=== PATIENT | female | born 1995 | race Caucasian/White ===

== ENCOUNTER 2024-10-24 16:23 | Emergency (ER) | payer MEDICARE ==
[~2024-10-24] VITALS: Ht 162.6 cm; Wt 63.5 kg
[2024-10-24 19:11] VITALS: TEMP 98.3
[2024-10-24] MEDS ORDERED: METOCLOPRAMIDE HCL 10 MG/2ML VIAL IV ONE (19:30)
[2024-10-24] MEDS ORDERED: KETOROLAC TROMETHAMINE 30 MG/ML VIAL ONE (19:44)
[2024-10-24 19:49] LABS: BASOPHILS % 0.4 % (0.0-1.0); EOSINOPHILS % 0.4 % (0.0-6.0); LYMPHOCYTES % 7.4 % (18.0-39.1); MONOCYTES % 4.8 % (4.4-11.3); NEUTROPHILS % 86.8 % (38.7-80.0); RED CELL DISTRIBUTION WIDTH 12.0 % (11.7-14.4)
[2024-10-24 19:52] LABS: AMPHETAMINES SCREEN,URINE NEGATIVE (NEGATIVE); CANNABINOIDS SCREEN,URINE NEGATIVE (NEGATIVE); COCAINE SCREEN,URINE NEGATIVE (NEGATIVE); LEUKOCYTE ESTERASE ,URINE NEGATIVE (NEGATIVE); OPIATES SCREEN,URINE NEGATIVE (NEGATIVE); PROTEIN,URINE DIPSTICK TRACE (NEGATIVE)
[2024-10-24 19:53] LABS: METHADONE SCREEN, URINE NEGATIVE (NEGATIVE); URINE UROBILINOGEN 0.2 mg/dL (0.2 - 1)
[2024-10-24] MEDS: KETOROLAC TROMETHAMINE 30 MG/ML VIAL IV STA (19:55)
[2024-10-24] MEDS: HALOPERIDOL LACTATE 5 MG/ML VIAL INJ ONE (19:56)
[2024-10-24] MEDS: DIPHENHYDRAMINE HCL INJ 50 MG/ML VIAL IV ONE (19:56)
[2024-10-24] MEDS: ONDANSETRON HCL INJ 2MG/ML 2ML 2 MG/ML VIAL IV STA (19:56)
[2024-10-24] MEDS: SODIUM CHLORIDE 0.9% 1000ML 1,000 ML IV ONE (19:56)
[2024-10-24 20:07] LABS: EPITHELIAL CELLS,URINE MODERATE /LPF; WBC,URINE (MAN) 0-5 /HPF (0-5)
[2024-10-24 20:12] LABS: EST GLOMERULAR FILTRATION RATE 108.0 ML/MIN (>=60)
[2024-10-24] MEDS ORDERED: IOPAMIDOL 370 MG/ML 100 ML INFUS..BTL INJ ONE (20:23)
[2024-10-24] MEDS: PROMETHAZINE HCL (IM) 25 MG/ML VIAL IM ONE (21:37)
[2024-10-25] MEDS: HALOPERIDOL LACTATE 5 MG/ML VIAL IV ONE ×2 (01:19→01:25)
[2024-10-25] MEDS: SODIUM CHLORIDE 0.9% 1000ML 1,000 ML IV ONE (01:24)
[2024-10-25 02:00] VITALS: PULSE 91; RESP 17; O2SAT 100
== END 2024-10-25 02:17 | disposition home or self-care (01) ==
LOC: ER 19:19
DX: R11.2 Nausea with vomiting, unspecified (principal); K31.84 Gastroparesis; R10.13 Epigastric pain; E03.9 Hypothyroidism, unspecified
CPT/HCPCS: 36415; 74177; 80053; 80307; 81001; 83690; 84484; 84702; 85025; 93005; 99284; J1200; J1630 ×2; J1885; J2405; J2470; J2550; J7030 ×2; Q9967